=== PATIENT | male | born 1960 | race Caucasian/White ===

== ENCOUNTER → 2017-01-21 | Day surgery (SDC) | payer MEDICARE, MEDICAID ==
[~2017-01-21] VITALS: Ht 193 cm; Wt 104.0 kg
[~2017-01-21] MED LIST: ADVIL200 MG PO; AQUAPHOR1 GM TOP; BIPAP INH; BYETTA10 MCG/0.0 SUB-Q; CARDIZEM CD (T120 MG PO; CIPRO500 MG PO; DEPO TESTOS200 MG/ML IM; DUONEB INH; DURAGESIC1 EAC1 TOP; ENSURE LIQUID237 ML GT; FLONASE 50 MCG/16 GM NOSE; GLUCERNA237 ML PO; GLUCOPHAGE1000 MG PO; JANUVIA 100 MG100 MG PO; LANOXIN (DIGI125 MCG PO; LASIX20 MG PO; LEVEMIR100 UNIT/1 SUB-Q; MAALOX LIQ UNIT30 ML PO; MILK OF MA400 MG/5 M PO; MIRALAX17 GM PO; NEURONTIN300 MG PO; NIZORAL120 ML TOP; PAIN RELIEVER325 MG PO; PATADAY2.5 ML OPHTH; PRADAXA150 MG PO; REMERON15 MG PO; ROBITUSSIN DM120 ML PO; SPIRONOLACTONE25 MG PO; TESTOSTERONE CYPIONATE IM; TYLENOL/COD#31 TAB PO; ULTRAM50 MG PO; VITAMIN D35000 UNIT PO; VOLTAREN 1% GE100 GM TOP; ZOLOFT50 MG PO
== END | disposition disaster alternative care site (69) ==
LOC: GPOC 01-20 10:00 → GEND 09:17 → GPOC 09:30
PROC: 0DH63UZ Insertion of Feeding Device into Stomach, Percutaneous Approach (ICD-10-PCS; principal; 2017-01-21)
DX: R13.13 Dysphagia, pharyngeal phase (principal); E11.9 Type 2 diabetes mellitus without complications; I48.91 Unspecified atrial fibrillation; G47.30 Sleep apnea, unspecified; G71.11 Myotonic muscular dystrophy; Z90.49 Acquired absence of other specified parts of digestive tract; Z98.41 Cataract extraction status, right eye; Z98.42 Cataract extraction status, left eye; Z98.890 Other specified postprocedural states; Z79.4 Long term (current) use of insulin; Z79.899 Other long term (current) drug therapy; Z88.5 Allergy status to narcotic agent
CPT/HCPCS: J0690; J2001; J7030